=== PATIENT | female | born 1995 | race Caucasian/White ===

== ENCOUNTER 2017-11-17 21:27 | Emergency (ER) | payer OTHER ==
[~2017-11-17] VITALS: Ht 182.9 cm; Wt 117.9 kg
[~2017-11-17 21:27] MED LIST: AMITRIPTYLINE H10 M1 PO; AMOXICILLIN 50500 MG PO; AMOXICILLIN500 M1 PO; AUGMENTIN 875875 MG PO; BUTALB-APAP-CA1 EACH; HYDROCODON-ACE1 EAC7 PO; IBUPROFEN 800800 MG PO; NAPROSYN500 MG PO; NORCO 5-325 TA1 EAC1 PO; NORCO 5-325 TA1 EACH PO; PREDNISONE 10 M10 MG PO; PROPRANOLOL 1010 M1 PO; ROBAXIN500 MG PO; TRAMADOL 50 MG50 MG PO; ZOFRAN4 MG PO
[2017-11-17] MEDS ORDERED: BENADRYL25 MG PO (23:25)
[2017-11-17] MEDS ORDERED: COMPAZINE10 MG PO (23:25)
[2017-11-17 23:40] VITALS: BP 115/68
== END 2017-11-17 23:40 | disposition home or self-care (01) ==
LOC: M.ERS 21:27
DX: G43.909 Migraine, unspecified, not intractable, without status migrainosus (principal); M79.7 Fibromyalgia

== ENCOUNTER → 2018-07-10 | Emergency (ER) | payer OTHER ==
[~2018-07-10] VITALS: Ht 185.4 cm; Wt 117.9 kg
[~2018-07-10] MED LIST changes: +AMOXICILLIN 50500 M1 PO; +BENADRYL25 MG PO; +COMPAZINE10 MG PO; +MAGOX 400400 MG PO; +NORCO 7.5-3251 EACH PO
[2018-07-10 03:38] VITALS: BP 173/98
== END ==
LOC: M.ERS 02:43
DX: H65.192 Other acute nonsuppurative otitis media, left ear (principal); G43.909 Migraine, unspecified, not intractable, without status migrainosus; M79.7 Fibromyalgia

== ENCOUNTER 2019-05-29 14:21 | Emergency (ER) | payer OTHER ==
[~2019-05-29] VITALS: Ht 182.8 cm; Wt 111.1 kg
[2019-05-29 15:13] LABS: ABSOLUTE BASOPHILS 0.1 thou/uL (0.0-0.2); ABSOLUTE LYMPHOCYTES 1.7 thou/uL (0.8-5.3); ABSOLUTE MONOCYTES 0.5 thou/uL (0.0-1.2); ABSOLUTE NEUTROPHILS 6.8 thou/uL (1.6-8.1); BASOPHILS 0.8 %; EOSINOPHILS 0.4 %; HEMATOCRIT 41.6 % (37.0-47.0); HEMOGLOBIN 14.9 gm/dL (12.0-15.0); LYMPHOCYTES 18.5 %; MCH 33.1 pg (26.0-34.0); MCHC 35.9 g/dL (28.0-37.0); MONOCYTES 5.9 %; MPV 7.4 fl. (7.2-11.1); NUCLEATED RBCS 0 /100WBC; PLATELET COUNT* 322 thou/uL (150-400); POLYS 74.4 %; RBC 4.52 mil/uL (4.20-5.00); RDW-CV 12.4 % (10.5-14.5); WBC 9.1 thou/uL (4.0-11.0)
[2019-05-29 15:18] LABS: CALCIUM 9.4 mg/dL (8.5-10.1); CREATININE 0.9 mg/dL (0.6-1.3); POTASSIUM 3.8 mmol/L (3.5-5.1)
[2019-05-29 15:50] LABS: URINE BILIRUBIN NEGATIVE (Negative); URINE BLOOD 3+ (Negative); URINE CLARITY CLOUDY; URINE COLOR RED; URINE GLUCOSE-RANDOM 1+ (Negative); URINE KETONES 1+ (Negative); URINE PROTEIN 3+ (Negative); URINE SPECIFIC GRAVITY 1.025 (1.005-1.030)
[2019-05-29 15:52] LABS: URINE LEUKOCYTES-REFLEX 2+ (Negative); URINE NITRITE-REFLEX POSITIVE (Negative)
[2019-05-29 15:56] LABS: SQUAMOUS >10 Many /LPF (0-3)
[2019-05-29 15:57] LABS: BACTERIA-REFLEX >30 Many /HPF (None Seen); CASTS None Seen /LPF (None Seen); CRYSTALS None Seen /LPF (None Seen); MUCUS 4-6 Moderate strn/LPF (None Seen); URINE RBC >20 Many /HPF (0-2); URINE WBC-REFLEX 6-15 Few /HPF (0-5)
[2019-05-29] MEDS ORDERED: KEFLEX500 M1 PO (16:07)
[2019-05-29] MEDS ORDERED: ZOFRAN ODT4 MG PO (16:07)
[2019-05-29 16:22] VITALS: BP 125/82
== END 2019-05-29 16:23 | disposition home or self-care (01) ==
LOC: M.ERS 14:21
PROVIDERS: Nurse Practitioner Psychiatric/Mental Health
DX: N39.0 Urinary tract infection, site not specified (principal); N93.9 Abnormal uterine and vaginal bleeding, unspecified; R03.0 Elevated blood-pressure reading, without diagnosis of hypertension; G43.909 Migraine, unspecified, not intractable, without status migrainosus; M79.7 Fibromyalgia; Z72.51 High risk heterosexual behavior

== ENCOUNTER 2020-09-01 12:42 | Emergency (ER) | payer OTHER ==
[~2020-09-01] VITALS: Ht 182.9 cm; Wt 117.9 kg
[~2020-09-01 12:42] MED LIST changes: +KEFLEX500 M1 PO; +ZOFRAN ODT4 MG PO
[2020-09-01] MEDS ORDERED: ENBRACE HR SOF1 EACH PO (12:56)
[2020-09-01 13:21] LABS: URINE BILIRUBIN NEGATIVE (Negative); URINE BLOOD NEGATIVE (Negative); URINE CLARITY CLEAR; URINE COLOR YELLOW; URINE GLUCOSE-RANDOM NEGATIVE (Negative); URINE KETONES NEGATIVE (Negative); URINE LEUKOCYTES-REFLEX NEGATIVE (Negative); URINE NITRITE-REFLEX NEGATIVE (Negative); URINE PROTEIN NEGATIVE (Negative); URINE UROBILINOGEN 0.2 E.U./dl (0.2-1.0)
[2020-09-01 13:40] LABS: ABSOLUTE BASOPHILS 0.1 thou/uL (0.0-0.2); ABSOLUTE EOSINOPHILS 0.1 thou/uL (0.0-0.7); ABSOLUTE LYMPHOCYTES 1.9 thou/uL (0.8-5.3); ABSOLUTE MONOCYTES 0.5 thou/uL (0.0-1.2); ABSOLUTE NEUTROPHILS 8.9 thou/uL (1.6-8.1); BASOPHILS 0.6 %; EOSINOPHILS 0.9 %; HEMOGLOBIN 11.3 gm/dL (12.0-15.0); LYMPHOCYTES 16.9 %; MCHC 34.3 g/dL (28.0-37.0); MCV 93.2 fL (80.0-100.0); MONOCYTES 4.1 %; NUCLEATED RBCS 0 /100WBC; PLATELET COUNT* 271 thou/uL (150-400); POLYS 77.5 %; RBC 3.54 mil/uL (4.20-5.00); RDW-CV 12.7 % (10.5-14.5); WBC 11.5 thou/uL (4.0-11.0)
[2020-09-01 13:49] LABS: CALCIUM 9.3 mg/dL (8.5-10.1); CREATININE 0.8 mg/dL (0.6-1.3); POTASSIUM 3.9 mmol/L (3.5-5.1)
[2020-09-01 14:01] LABS: ALBUMIN 3.1 g/dL (3.4-5.0); TOTAL BILIRUBIN 0.3 mg/dL (<0.1-1.0); TOTAL PROTEIN 6.7 g/dL (6.4-8.2)
[2020-09-01] MEDS ORDERED: FLEXERIL PO (15:25)
[2020-09-01 15:37] VITALS: BP 128/61
--- NOTE | 2020-09-01 15:39 | EKG ---
[place] [address] ELECTROCARDIOGRAM REPORT Name: EVERT STREETER Room: [facility]#: [id number] Admission: 09/01/20 Attend Phys: Discharge: 09/01/20 Date of : [birth year] Date of Service: 09/01/20 1340 Report #: [id number] THIS REPORT FOR: //name// [facility] ED Test Date: 2020-09-01 Test Time: 13:40:22 Pat Name: EVERT STREETER Department: Room: Gender: F [employer] Manager: [facility] : 1995 Requested By: Vale Meade Order Number: [id number] MD: Boris Jurado Measurements Intervals [place] Rate: 90 P: 41 WV: 160 QRS: 22 QRSD: 78 T: 0 QT: 337 QTc: 413 Interpretive Statements Sinus rhythm No previous ECG available for comparison Electronically Signed On 09-01-2020 15:39:08 [employer] PATTERN[employer] by Boris Jurado [email or web address] <ELECTRONICALLY SIGNED> By: Boris Jurado MD, [facility] 09/01/20 1539 1340 1340 Boris Jurado MD, FACC /EPI
== END 2020-09-01 15:38 | disposition home or self-care (01) ==
LOC: M.ERS 12:42
PROVIDERS: Nurse Practitioner Family
DX: O26.892 Other specified pregnancy related conditions, second trimester (principal); S39.012A Strain of muscle, fascia and tendon of lower back, initial encounter; O99.352 Diseases of the nervous system complicating pregnancy, second trimester; R55 Syncope and collapse; Z3A.15 15 weeks gestation of pregnancy; X58.XXXA Exposure to other specified factors, initial encounter; Y93.89 Activity, other specified; Y92.89 Other specified places as the place of occurrence of the external cause; Y99.8 Other external cause status

== ENCOUNTER 2021-06-24 11:54 | Emergency (ER) | payer OTHER ==
[~2021-06-24] VITALS: Ht 182.9 cm; Wt 136.1 kg
[~2021-06-24 11:54] MED LIST changes: +ENBRACE HR SOF1 EACH PO; +FLEXERIL PO
[2021-06-24 12:02] VITALS: BP 106/87
[2021-06-24] MEDS ORDERED: BIRTH CONTROL (12:03)
[2021-06-24] MEDS ORDERED: PREDNISONE 20 M20 MG PO (12:11)
[2021-06-24] MEDS ORDERED: MUPIROCIN1 GM TOP (12:11)
== END 2021-06-24 12:21 | disposition home or self-care (01) ==
LOC: M.ERS 11:54
DX: L23.7 Allergic contact dermatitis due to plants, except food (principal); G43.909 Migraine, unspecified, not intractable, without status migrainosus; Z90.89 Acquired absence of other organs; Z91.040 Latex allergy status